=== PATIENT | male | born 2000 | race African-American/Black ===

== ENCOUNTER 2021-08-04 16:03 | Emergency (ER) | payer BC ==
[~2021-08-04] VITALS: Ht 175.3 cm; Wt 71.8 kg
[2021-08-04] MEDS ORDERED: DOXYCYCLINE HY100 MG PO (17:12)
[2021-08-04] MEDS ORDERED: [UNRECOGNIZED DRUG - CODE] IM (17:32)
== END 2021-08-04 17:38 | disposition home or self-care (01) ==
LOC: FSED 16:24
DX: A53.0 Latent syphilis, unspecified as early or late (principal)
CPT/HCPCS: 99282